=== PATIENT | male | born 1985 | race African-American/Black ===

== ENCOUNTER 2018-03-10 12:22 | Emergency (ER) | payer OTHER ==
[~2018-03-10] VITALS: Ht 177.8 cm; Wt 66.2 kg
[~2018-03-10 12:22] MED LIST: IBUPROFEN 600600 M1 PO
[2018-03-10 12:24] VITALS: BP 108/71
[2018-03-10] MEDS ORDERED: MOBIC7.5 MG PO (14:25)
[2018-03-10] MEDS ORDERED: MEDROLDOSEPACK PO (14:25)
[2018-03-10] MEDS ORDERED: CYCLOBENZAPRINE5 MG PO (14:25)
== END 2018-03-10 14:37 | disposition home or self-care (01) ==
LOC: ER 12:22
DX: M54.5 Low back pain (principal); M25.562 Pain in left knee; F17.210 Nicotine dependence, cigarettes, uncomplicated; W01.0XXA Fall on same level from slipping, tripping and stumbling without subsequent striking against object, initial encounter; Y93.89 Activity, other specified; Y92.89 Other specified places as the place of occurrence of the external cause; Y99.8 Other external cause status